=== PATIENT | male | born 1955 | race Caucasian/White ===

== ENCOUNTER 2023-07-20 06:11 | Day surgery (SDC) | payer OTHER ==
[~2023-07-20] VITALS: Ht 167.6 cm; Wt 84.1 kg
[2023-07-20] MEDS ORDERED: LIDOCAINE 4% 50 ML SOLUTION TP ONE (06:12)
[2023-07-20] MEDS ORDERED: ALBUTEROL SULFATE 2.5 MG/0.5 ML NEB SOLUTION NEB ONE (06:12)
[2023-07-20] MEDS ORDERED: LIDOCAINE 2% 11 ML JELLY TP ONE (06:12)
[2023-07-20] MEDS ORDERED: BENZOCAINE 20% 50 MCG/SPRAY 57 GM TP ONE (06:12)
[2023-07-20] MEDS ORDERED: SODIUM CHLORIDE 0.9% 1,000 ML ONE (06:46)
[2023-07-20] MEDS ORDERED: SODIUM CHLORIDE 0.9% 1,000 ML IV ONE (07:00)
[2023-07-20] MEDS ORDERED: FentaNYL CITRATE PF 100 MCG/2 ML VIAL ONE (07:45)
[2023-07-20] MEDS ORDERED: MIDAZOLAM HCL 2 MG/2 ML VIAL ONE (07:46)
[2023-07-20] MEDS ORDERED: MethylPREDNISolone SOD SUCC 125 MG/2 ML VIAL IVP ONE (08:45)
[2023-07-20 08:50] VITALS: PULSE 51; RESP 19; O2SAT 100
[2023-07-20] MEDS ORDERED: MethylPREDNISolone SOD SUCC 125 MG/2 ML VIAL ONE (08:50)
== END 2023-07-20 11:05 | disposition home or self-care (01) ==
LOC: SURGERY 06:11
PROVIDERS: ATTEND Internal Medicine Critical Care Medicine
DX: J38.4 Edema of larynx (principal); B37.0 Candidal stomatitis; Z79.899 Other long term (current) drug therapy
CPT/HCPCS: 31623; 87206; 87101; 87220; 87070; 31624; 94640; 71045; 87015; J3010; J2250; J2930; Q9967; J7030; 88112; J7613; Z7610

== ENCOUNTER 2024-08-05 06:32 | Day surgery (SDC) | payer OTHER ==
[~2024-08-05] VITALS: Ht 165.1 cm; Wt 58.6 kg
[2024-08-05] MEDS ORDERED: CHOL500045 PO (07:27)
[2024-08-05] MEDS ORDERED: ESCI20TA37 PO (07:27)
[2024-08-05] MEDS ORDERED: HYDR25TA2 PO (07:27)
[2024-08-05] MEDS ORDERED: DOXY75TA14 PO (07:27)
[2024-08-05] MEDS ORDERED: LISI40TA9 PO (07:27)
[2024-08-05] MEDS ORDERED: FAMO40TA7 PO (07:27)
[2024-08-05] MEDS ORDERED: MONT-40 PO (07:27)
[2024-08-05] MEDS: SODIUM CHLORIDE 0.9% 1,000 ML IV ONE (08:14)
[2024-08-05] MEDS ORDERED: FentaNYL CITRATE PF 100 MCG/2 ML VIAL ONE (08:16)
[2024-08-05] MEDS ORDERED: MIDAZOLAM HCL 2 MG/2 ML VIAL ONE (08:17)
== END 2024-08-05 10:15 | disposition home or self-care (01) ==
LOC: SURGERY 06:32
PROVIDERS: ATTEND Internal Medicine Critical Care Medicine
DX: R05.3 Chronic cough (principal); Z53.8 Procedure and treatment not carried out for other reasons; R04.2 Hemoptysis; R06.1 Stridor
CPT/HCPCS: J2250; J3010